=== PATIENT | male | born 1965 | race African-American/Black ===

== ENCOUNTER 2019-01-12 02:32 | Emergency (ER) | payer BC ==
[~2019-01-12] VITALS: Ht 167.6 cm; Wt 63.5 kg
[2019-01-12 02:35] VITALS: BP 179/93
[2019-01-12] MEDS ORDERED: IBUPROFEN 200 MG TABLET. PO ONE (03:30)
--- NOTE | 2019-01-12 04:04 | PHYS DOC ---
Past Medical History Past Medical History: No Pertinent History Past Surgical History: Appendectomy Alcohol Use: Occasionally Drug Use: None Adult General Chief Complaint Chief Complaint: SORE THROAT HPI HPI Patient is a 53 year old male presenting with some throat pain when he swallows he feels it more on the right is currently feels irritated and scratchy no fever really no runny nose no cough no shortness of breath no chest pain no other symptoms just wanted to come in to get checked out. He has not yet tried anything for relief symptoms are mild to moderate in nature. Current Medications Current Medications Current Medications Medications (Trade) Dose Ordered Sig/[place] Start Time Stop Time Status Last Admin Dose Admin Ibuprofen (Motrin) 600 mg 1X ONCE 01/12/19 03:30 01/12/19 03:31 DC 01/12/19 03:16 600 MG Allergies Allergies Allergies Coded Allergies Type Severity Reaction Last Updated Verified No Known Drug Allergies 01/12/19 No Physical Exam Physical Exam Constitutional: Well developed, well nourished, no acute distress, non-toxic appearance. [] HENT: Normocephalic, atraumatic, bilateral external ears normal, oropharynx moist, no oral exudates, nose normal. [] Eyes: PERRLA, EOMI, conjunctiva normal, no discharge. Possible mild erythema of the oropharynx posteriorly however the uvula is in the midline there is no fluctuance there is no exudate Neck: Normal range of motion, no tenderness, supple, no stridor. [] Pulmonary: Normal respiratory effort no increased work of breathing no obvious chest wall trauma Abdomen: Bowel sounds normal, soft, no tenderness, no masses, no pulsatile masses. [] Skin: Warm, dry, no erythema, no rash. [] Back: No tenderness, no CVA tenderness. [] Extremities: No tenderness, no cyanosis, no clubbing, ROM intact, no edema. [] Neurologic: Alert and oriented X 3, normal motor function, normal sensory function, no focal deficits noted. [] Psychologic: Affect normal, judgement normal, mood normal. [] Current Patient Data Vital Signs Vital Signs Date Time Temp Pulse Resp B/P (MAP) Pulse Ox O2 Delivery O2 Flow Rate FiO2 01/12/19 02:35 98.3 76 16 179/93 (121) 98 Room Air 98.3 EKG EKG [] Radiology/Procedures Radiology/Procedures [] Course & Med Decision Making Course & Med Decision Making Pertinent Labs and Imaging studies reviewed. (See chart for details) []53-year-old male with no past medical history presenting with basically isolated complaint of sore throat rapid strep was negative no evidence of peritonsillar abscess or other acute pathology on examination patient is speaking normally tolerating secretions no acute condition identified recommended Tylenol or Motrin as needed if her symptoms return precautions discussed he voiced understanding Dragon Disclaimer Dragon Disclaimer This electronic medical record was generated, in whole or in part, using a voice recognition dictation system. Departure Departure Impression: Primary Impression: Pharyngitis Disposition: HOME, SELF-CARE Condition: STABLE Patient Instructions: Sore Throat, [id number] AISSATOU COOPER MD Jan 12, 2019 04:04
== END 2019-01-12 03:35 | disposition home or self-care (01) ==
LOC: ER 02:32
DX: J02.9 Acute pharyngitis, unspecified (principal); Z90.89 Acquired absence of other organs
CPT/HCPCS: 87070; 87880; 99283

== ENCOUNTER 2020-07-04 06:18 | Emergency (ER) | payer BC ==
[~2020-07-04] VITALS: Ht 165.1 cm; Wt 99.5 kg
[2020-07-04 06:58] LABS: BASO # 0.1 x10^3/uL (0.0-0.2); BASO % 1 % (0-3); EOS # 0.2 x10^3/uL (0.0-0.7); EOS % 3 % (0-3); HEMATOCRIT 43.3 % (39.0-53.0); HEMOGLOBIN 14.5 g/dL (13.0-17.5); LYMPH # 3.2 x10^3/uL (1.0-4.8); LYMPH % 42 % (24-48); MEAN CORPUSCULAR HEMOGLOBIN 28 pg (25-35); MEAN CORPUSCULAR HGB CONC 34 g/dL (31-37); MEAN CORPUSCULAR VOLUME 85 fL (79-100); MONO # 0.7 x10^3/uL (0.0-1.1); MONO % 9 % (0-9); NEUT # 3.5 x10^3/uL (1.8-7.7); NEUT % 45 % (31-73); PLATELET COUNT 258 x10^3/uL (140-400); RED BLOOD COUNT 5.11 x10^6/uL (4.30-5.70); RED CELL DISTRIBUTION WIDTH 13.8 % (11.5-14.5); WHITE BLOOD COUNT 7.8 x10^3/uL (4.0-11.0)
[2020-07-04 07:00] LABS: BILIRUBIN,URINE NEGATIVE (NEG); CLARITY,URINE CLEAR; COLOR,URINE YELLOW; NITRITE,URINE NEGATIVE (NEG); PROTEIN,URINE NEGATIVE (NEG-TRACE); UROBILINOGEN,URINE 0.2 mg/dL (0.2 mg/dL)
[2020-07-04 07:06] LABS: BACTERIA,URINE 0 /HPF (0-FEW); BARBITURATES NEG (NEG); BENZODIAZEPINES NEG (NEG); CANNABINOIDS NEG (NEG); COCAINE NEG (NEG); METHADONE NEG (NEG); OPIATES NEG (NEG); PHENCYCLIDINE NEG (NEG); RBC,URINE OCC /HPF (0-2); WBC,URINE 0 /HPF (0-4)
[2020-07-04 07:07] LABS: AMPHETAMINE/METHAMPHETAMINE NEG (NEG)
[2020-07-04 07:09] LABS: CALCIUM 8.7 mg/dL (8.5-10.1); GFR 93.9; POTASSIUM 4.1 mmol/L (3.5-5.1)
--- NOTE | 2020-07-04 07:10 | PHYS DOC ---
Past Medical History Past Medical History: No Pertinent History Past Surgical History: Appendectomy Smoking Status: Current Every Day Smoker Alcohol Use: Occasionally Drug Use: None General Adult EDM: Chief Complaint: ABDOMINAL PAIN HPI: HPI: 54-year-old male past medical history of hypertension, prediabetes and obesity, presents the ED with complaints of abdominal fullness and distention for the past few weeks stating "it feels like I just worked out my ab muscles too much." Recently established care with primary care physician and was told he was prediabetic. States he came to the ED because he felt the pressure was building and would eventually affect his heart. LBM this am-normal brown color. States he has normal daily bowel movements. Is not passing gas but is burping appropriately. Past surgical history of appendicitis status post appendectomy. Does not drink alcohol daily. No known history of liver disease. No family history of cancer or autoimmune disease. Denies any associated fever, chills, nausea, vomiting, nausea, hematochezia, hematemesis, diarrhea, cough, abscess, chest pain, weight loss or weight gain, night sweats, back pain or neurologic deficits. Review of Systems: Review of Systems: Constitutional: Denies fever or chills. [] Eyes: Denies change in visual acuity. [] HENT: Denies nasal congestion or sore throat. [] Respiratory: Denies cough or shortness of breath or hemoptysis Cardiovascular: Denies chest pain or edema. [] GI: Denies nausea, vomiting, bloody stools or diarrhea. [] : Denies dysuria, hematuria flank pain Musculoskeletal: Denies back pain or joint pain. [] Integument: Denies rash or crepitus Neurologic: Denies headache, neck stiffness, focal weakness or sensory changes. [] Endocrine: Denies polyuria or polydipsia. [] Lymphatic: Denies swollen glands. [] Psychiatric: Denies depression or anxiety. [] Heart Score: Risk Factors: Risk Factors: DM, Current or recent (<one month) smoker, HTN, HLP, family history of CAD, obesity. Risk Scores: Score 0 - 3: 2.5% MACE over next 6 weeks - Discharge Home Score 4 - 6: 20.3% MACE over next 6 weeks - Admit for Clinical Observation Score 7 - 10: 72.7% MACE over next 6 weeks - Early Invasive Strategies Allergies: Allergies: Allergies Coded Allergies Type Severity Reaction Last Updated Verified No Known Drug Allergies 01/12/19 No Physical Exam: PE: Constitutional: Well developed, well nourished, no acute distress, non-toxic appearance. HENT: Normocephalic, atraumatic, Eyes: EOMI, conjunctiva normal, no discharge. Neck: Normal range of motion, supple, Cardiovascular: S1/2 present, regular rhythm Lungs & Thorax: Speaking in full sentences, bilateral equal chest rise, no tachypnea or increased work of breathing Abdomen: Abdominal obesity, distended/full abdomen with no rigidity or guarding, no focal tenderness, vertical rlq scar and lap scar near umbilicus Skin: Warm, dry, no erythema, no rash. Back: No tenderness, no CVA tenderness. [] Extremities: No tenderness, no cyanosis, no edema Neurologic: Alert and oriented X 3, normal motor function, normal sensory function, no focal deficits noted. [] Psychologic: Affect normal, judgement normal, mood normal. [] Current Patient Data: Vital Signs: Vital Signs Date Time Temp Pulse Resp B/P (MAP) Pulse Ox O2 Delivery O2 Flow Rate FiO2 07/04/20 06:27 98.7 88 20 160/82 (108) 98 Room Air 98.7 EKG: EKG: Sinus rhythm at 71 bpm, no axis deviation, normal intervals, T wave inversion lead III, no ST elevations or ST depressions Radiology/Procedures: Radiology/Procedures: IMAGING REPORT Signed PATIENT: JESUS SANCHEZACCOUNT: [id number] : 1965 LOCATION: ER AGE: 54 SEX: M EXAM STATUS: REG ER ORD. PHYSICIAN: ASTON GORDON DO REASON: abdominal pain/distention PROCEDURE: CT ABD PELV W/ORAL&IV CONTRAST Study: CT abdomen/pelvis with intravenous contrast Indication: Abdominal pain and distention. Comparison: None. Technique: Helical CT imaging performed of the abdomen and pelvis after the intravenous administration of 75 cc Omnipaque 300 contrast. Sagittal and coronal reformats were obtained. One or more of the following individualized dose reduction techniques were utilized for this examination: 1. Automated exposure control 2. Adjustment of the mA and/or kV according to patient size 3. Use of iterative reconstruction technique. Findings: No acute abnormality seen to involve the visualized lungs or mediastinal contents. Hepatic steatosis. Unremarkable gallbladder, pancreas, spleen and adrenal glands. No complex renal cyst or mass. No hydronephrosis. Mildly distended urinary bladder without wall thickening. The prostate is relatively normal in size. Pancolonic diverticulosis without manifestations of diverticulitis. The colonic mucosa is not fully evaluated due to segmental underdistention and the lack of oral contrast within the colon at the time of imaging No inflammatory changes at the expected location of the appendix. Orally administered contrast passes through the majority of the small bowel in keeping with the absence of obstruction. The stomach is within normal limits. The major vasculature is within normal limits. No lymphadenopathy by size criteria. No free fluid or pneumoperitoneum. No complex body wall hernia. Findings typical of diffuse idiopathic skeletal hyperostosis. Scattered superimposed degenerative changes mainly involving the lumbar spine. Impression: 1. No acute abnormality is identified throughout the abdomen or pelvis. There is pancolonic diverticulosis but without definitive findings of diverticulitis. No bowel obstruction. 2. Hepatic steatosis. Electronically signed by: MARCELLA BRODERICK MD (07/04/2020 10:48 AM) [id number] DICTATED and SIGNED BY: MARCELLA BRODERICK MD DATE: 07/04/20 [id number] Course & Med Decision Making: Course & Med Decision Making Pertinent Labs and Imaging studies reviewed. (See chart for details) Concern for diffuse abdominal swelling in the setting of hepatic steatosis and pancolonic diverticulosis, in the absence of any fever, leukocytosis, fluid overload or ascites. Is tolerating oral intake with normal BMs, no nausea or vomiting. Lipase is elevated (not by 3x) -and patient symptoms do not fit acute pancreatitis (no n/v or localized abdominal pain). Chronic pancreatitis considered-but no characteristic abdominal exam or CT findings.Pt calm/in no distress, sitting on edge of bed and requesting discharge. Will discharge home with strict ED return precautions were given for fever, bloody diarrhea, worsening pain, or dehydration with nausea or vomiting. I discouraged Tylenol use and drinking alcohol until seen by PMD or specialist. Encouraged urgent outpatient follow-up with PMD and GI evaluation, may benefit from hepatology at . Life-threatening processes were considered but are low suspicion at this time, given history, physical exam and ED workup. Pt was educated on all prescription medications and adverse effects. All patient's questions were answered and pt was stable at time of discharge. Life/limb-threatening differential includes but is not limited to, aortic dissection, aortic aneurysm, acute coronary syndrome, surgical abdomen (appendicitis, cholecystitis, ischemic bowel, strangulated hernia, etc), bowel obstruction or volvulus, bladder outlet obstruction, gastrointestinal bleeding, inflammatory bowel disease, peptic ulcer disease, SBP, ACS/CAD, sepsis, diverticular disease, ureterolithiasis, nephrolithiasis, testicular torsion, or genitourinary infection. I spoken with the patient and her caregivers. I explained the patient's condition, diagnoses and treatment plan based on the information available to me at this time. I have answered the patient and her caregiver's questions and addressed any concerns. The patient and her caregivers have a good understanding of patient's diagnosis, condition and treatment plan as can be expected at this point. Vital signs have been stable. Patient's condition is stable and appropriate for discharge from the emergency department. Patient will pursue further outpatient evaluation with primary care physician or other designated or consulting physician as outlined in the discharge instructions. The patient and/or caregivers are agreeable to this plan of care and follow-up instructions have been explained in detail. The patient and/or caregivers have received these instructions in written form and have expressed an understanding of the discharge instructions. The patient and/or caregivers are aware that any significant change of condition or worsening of symptoms should prompt immediate return to this or the closest emergency department or call to 911. Kumar Disclaimer: Kumar Disclaimer: This electronic medical record was generated, in whole or in part, using a voice recognition dictation system. Departure Departure Impression: Primary Impression: Abdominal distention Additional Impressions: Hepatic steatosis Pancolonic diverticulosis Disposition: DC HOME SELF CARE/HOMELESS Condition: STABLE Referrals: NOAH NUNEZ MD (PCP) in 1-2 weeks for re-evaluation Patient Instructions: Abdominal Pain, Diverticulosis, Fat and Cholesterol Control Diet Additional Instructions: FOLLOW UP WITH GASTROENTEROLOGY: [facility]enter[facility] Address: [address] [place] [id number] FOLLOW UP WITH HEPATOLOGY: [place] [address] to schedule appointment: [phone] EMERGENCY DEPARTMENT GENERAL DISCHARGE INSTRUCTIONS Thank you for coming to [facility] Emergency Department (ED) today and trusting us with you care. We trust that you had a positive experience in our Emergency Department. If you wish to speak to the department management, you may call the Director at [phone]. YOUR FOLLOW UP INSTRUCTIONS ARE FOLLOWS: 1. Do you have a private Doctor? If you do not have a private doctor, please ask for a resource list of physicians or clinics that may be able to assist you with follow up care. 2. The Emergency Physicain has interpreted your x-rays. The X-Ray specialist will also review them. If there is a change in the findings, you will be notified in 48 hours when at all possible. 3. A lab test or culture has been done, your results will be reviewed and you will be notified if you need a change in treatment. ADDITIONAL INSTRUCTIONS AND INFORMATION: 1. Your care today has been supervised by a physician who is specially trained in emergency care. Many problems require more than one evaluation for a complete diagnosis and treatment. We recommend that you schedule your follow up appointment as recommended to ensure complete treatment of you illness or injury. If you are unable to obtain follow up care and continue to have a problem, or if your condition worsens, we recommend that you return to the ED. 2. We are not able to safely determine your condition over the phone nor are we able to give sound medical advice over the phone. For these safety reasons, if you call for medical advice we will ask you to come to the ED for further evaluation. 3. If you have any questions regarding these discharge instructions please call the ED at [phone]. SAFETY INFORMATION: In the interest of safety, wellness, and injury prevention; we encourage you to wear your sealbelt, if you smoke; quite smoking, and we encourage family to use a protective helmet for bicycling and other sporting events that present an increased risk for head injury. IF YOUR SYMPTOMS WORSEN OR NEW SYMPTOMS DEVELOP, OR YOU HAVE CONCERNS ABOUT YOUR CONDITION; OR IF YOUR CONDITION WORSENS WHILE YOU ARE WAITING FOR YOUR FOLLOW UP APPOINTMENT; EITHER CONTACT YOUR PRIMARY CARE DOCTOR, THE PHYSICIAN WHOSE NAME AND NUMBER YOU WERE GIVEN, OR RETURN TO THE ED IMMEDIATELY. ASTON GORDON DO Jul 04, 2020 07:10
[2020-07-04 07:15] LABS: ALBUMIN 3.5 g/dL (3.4-5.0); DIRECT BILIRUBIN 0.1 mg/dL (0.0-0.2); TOTAL BILIRUBIN 0.2 mg/dL (0.2-1.0); TOTAL PROTEIN 7.7 g/dL (6.4-8.2)
[2020-07-04] MEDS ORDERED: IOHEXOL 240 MG/ML 50ML VIAL. PO ONE (07:15)
[2020-07-04] MEDS ORDERED: IOHEXOL 300 MG/ML 100ML VIAL. IV ONE (07:15)
[2020-07-04] MEDS ORDERED: CONTRAST GIVEN. MC PRN (07:30)
[2020-07-04] MEDS ORDERED: FAMOTIDINE 20 MG/2 ML VIAL IVP ONE (07:45)
[2020-07-04] MEDS ORDERED: METOCLOPRAMIDE HCL 10 MG/2 ML VIAL. IVP ONE (07:45)
[2020-07-04] MEDS ORDERED: fentaNYL PF VIAL 100 MCG/2 ML VIAL IVP ONE (07:45)
--- NOTE | 2020-07-04 10:50 | RAD ---
Study: CT abdomen/pelvis with intravenous contrast Indication: Abdominal pain and distention. Comparison: None. Technique: Helical CT imaging performed of the abdomen and pelvis after the intravenous administratio n of 75 cc Omnipaque 300 contrast. Sagittal and coronal reformats were obtained. One or more of the following individualized dose reduction techniques were utilized for this examinat ion: 1. Automated exposure control 2. Adjustment of the mA and/or kV according to patient size 3. Use of iterative reconstruction technique. Findings: No acute abnormality seen to involve the visualized lungs or mediastinal contents. Hepatic steatosis. Unremarkable gallbladder, pancreas, spleen and adrenal glands. No complex renal cy st or mass. No hydronephrosis. Mildly distended urinary bladder without wall thickening. The prostate is relatively normal in size. Pancolonic diverticulosis without manifestations of diverticulitis. The colonic mucosa is not fully e valuated due to segmental underdistention and the lack of oral contrast within the colon at the time of imaging No inflammatory changes at the expected location of the appendix. Orally administered cont rast passes through the majority of the small bowel in keeping with the absence of obstruction. The s tomach is within normal limits. The major vasculature is within normal limits. No lymphadenopathy by size criteria. No free fluid or pneumoperitoneum. No complex body wall hernia. Findings typical of diffuse idiopathic skeletal hypero stosis. Scattered superimposed degenerative changes mainly involving the lumbar spine. Impression: 1. No acute abnormality is identified throughout the abdomen or pelvis. There is pancolonic divertic ulosis but without definitive findings of diverticulitis. No bowel obstruction. 2. Hepatic steatosis. Electronically signed by: MARCELLA BRODERICK MD (07/04/2020 10:48 AM) [id number]
[2020-07-04 11:03] VITALS: BP 142/83
--- NOTE | 2020-07-04 12:06 | EKG ---
[facility] [address] [place] [address] Test Date: 2020-07-04 Test Time: 07:14:58 Pat Name: JESUS SANCHEZ Department: Room: Gender: M [employer] Operator: : 1965 Requested By: ASTON GORDON Order Number: [id number] Reading MD: Measurements Intervals [place] Rate: 71 P: 52 [place]: 188 QRS: 5 QRSD: 88 T: 13 QT: 380 QTc: 418 Interpretive Statements SINUS RHYTHM NO SPECIFIC ECG ABNORMALITIES RI6.02 No previous ECG available for comparison
== END 2020-07-04 11:24 | disposition home or self-care (01) ==
LOC: ER 06:18
DX: K57.10 Diverticulosis of small intestine without perforation or abscess without bleeding (principal); R14.0 Abdominal distension (gaseous); K76.0 Fatty (change of) liver, not elsewhere classified; F17.200 Nicotine dependence, unspecified, uncomplicated; Z90.89 Acquired absence of other organs
CPT/HCPCS: 36415; 74177; 80048; 80076; 80307; 81001; 83690; 84484; 85025; 93005; 96374; 96375; 99285; J2765; J3010; J3490; Q9966; Q9967